=== PATIENT | male | born 1985 | race African-American/Black ===

== ENCOUNTER → 2016-06-26 | Emergency (ER) | payer OTHER ==
[~2016-06-26] VITALS: Ht 172.7 cm; Wt 90.7 kg
[~2016-06-26] MED LIST: Acetaminophen 500mg (ES) tab PO ONE; IBUPROFEN600 MG ORAL; NKM; TRAMADOL HCL50 MG ORAL
[2016-06-26 08:05] VITALS: BP 167/103
--- NOTE | 2016-06-26 12:01 | Diagnostic Imaging Report ---
Indication: TRAUMA, pain Technique: 3 views right foot Comparison: none Findings: No acute fractures. No dislocations. There is slight hammertoe deformity of the second through fifth digits Impression: No acute process
--- NOTE | 2016-06-26 12:04 | Diagnostic Imaging Report ---
Indication: TRAUMA, pain Technique: 3 views of the left shoulder Comparison: none Findings: No acute fractures. No dislocations. Joint spaces are preserved Impression:Negative
--- NOTE | 2016-06-26 22:38 | Emergency Room Report ---
History of Present Illness General Chief Complaint: Upper Extremity Injury Source: Patient Present Illness HPI Patient fell in the bathtub this AM. At time = pain in L shoulder. Then also noted bleeding from toe. Went to work. [place] dizzy. No LOC or head trauma. Pain 8/10 shoulder - sharp and aching. No weakness or numbness. Took 1200 mg motrin. Drove self here. Tetanus UTD. 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 Nursing Documentation: PMH: Agreed, PSxH: Agreed Nursing Documentation-PMH Past Medical History: No History, Except For Hx Asthma: Yes Review of Systems Constitutional: Reports: see HPI Eye: Denies: blurred vision Respiratory: Denies: shortness of breath Cardiovascular: Denies: chest pain Gastrointestinal: Denies: nausea, vomiting Musculoskeletal: Reports: see HPI Skin: Reports: see HPI Neurological: Reports: see HPI Physical Exam Vital Signs Date Time Temp Pulse Resp B/P Pulse Ox O2 Delivery O2 Flow Rate FiO2 06/26/16 08:05 98.6 75 18 167/103 98 Room Air Sp02 EP Interpretation: reviewed, normal General Appearance: well appearing, no apparent distress, GCS 15 Head: normocephalic, atraumatic Eyes: bilateral eye PERRL, bilateral eye normal inspection ENT: hearing grossly normal, normal voice Neck: full range of motion, supple, no bony tend Respiratory: chest non-tender, no respiratory distress, speaking full sentences Cardiovascular #2: 2+ radial (L) Gastrointestinal: normal bowel sounds, non tender, soft Musculoskeletal: normal range of motion - except for L shoulder, pelvis stable , other - pain L shoulder with some decreased ROM, but able to lift hand. No elbow pain. Neurologic: alert, oriented x3, motor strength/tone normal, sensory intact, cerebellar normal, normal gait, speech normal Psychiatric: mood/affect normal Skin: laceration - 1 cm superficial lac on R toe Procedures Laceration/Wound Repair Laceration/Wound Repair : Consent: Verbal Wound Location: other - R toe Wound's Depth, Shape: superficial Wound Explored: clean Betadine Prep?: Yes Wound Repaired With: Dermabond Sterile Dressing Applied?: Yes Splint Applied?: No Patient Tolerated: Well Complications: None Medical Decision Making Diagnostic Impression: Primary Impression: Shoulder contusion Qualified Codes: S40.012A - Contusion of left shoulder, initial encounter Additional Impression: Toe laceration ER Course Patient with L shoulder and R toe injuries post fall this AM. Ddx: fracture, contusion, sprain, laceration. Xrays indicated. Also analgesia ordered ( patient driving). Lac needs repair, dermabond will suffice. Xrays no fx. Lac repaired. Sling applied and position excellent and neurovasc normal checked by me. Patient stable for outpatient observation and treatment. Other X-Ray Diagnostic Results Other X-Ray Diagnostic Results #1: X-Ray Ordered: L shoulder EP Interpretation: Yes Findings: no fractures, no dislocation, no soft tissue swelling Number of Views: 3 Other X-Ray Diagnostic Results #2: X-Ray Ordered: R foot EP Interpretation: Yes Findings: no fractures, no dislocation, no soft tissue swelling Number of Views: 3 Last Vital Signs Date Time Temp Pulse Resp B/P Pulse Ox O2 Delivery O2 Flow Rate FiO2 06/26/16 08:05 98.6 75 18 167/103 98 Room Air Status: improved Disposition: HOME, SELF-CARE Condition: Improved Scripts Ibuprofen* (MOTRIN*) 600 Mg Tablet 600 MG ORAL Q8H Y for For Pain, #20 TAB 0 Refills Prov: Nikko Kern M.D. 06/26/16 Tramadol Hcl* (ULTRAM*) 50 Mg Tablet 50 MG ORAL Q6H Y for For Pain, #16 TAB 0 Refills Prov: Nikko Kern M.D. 06/26/16 Departure Forms: Return to Work Return to Work in (Days): 3 Return to Work Date: Jun 29, 2016 Other Restrictions: Rest L arm Patient Instructions: Laceration Care, Adult, Contusion, RICE for Routine Care of Injuries Additional Instructions: Elevation, ice and rest. Tylenol can also help. Nikko Kern M.D. Jun 26, 2016 22:38
== END | disposition home or self-care (01) ==
LOC: EMR 08:15
DX: S40.012A Contusion of left shoulder, initial encounter (principal); S91.119A Laceration without foreign body of unspecified toe without damage to nail, initial encounter; J45.909 Unspecified asthma, uncomplicated; W18.2XXA Fall in (into) shower or empty bathtub, initial encounter; Y92.002 Bathroom of unspecified non-institutional (private) residence as the place of occurrence of the external cause; Y99.8 Other external cause status

== ENCOUNTER 2016-07-05 09:22 | Emergency (ER) | payer OTHER ==
[~2016-07-05] VITALS: Ht 172.7 cm; Wt 90.7 kg
[~2016-07-05 09:22] MED LIST changes: -Acetaminophen 500mg (ES) tab PO ONE
[2016-07-05 09:40] VITALS: BP 123/76
[2016-07-05 09:55] VITALS: BP 123/76
--- NOTE | 2016-07-05 10:52 | Emergency Room Report ---
History of Present Illness General Chief Complaint: General Complaint Source: Patient Present Illness HPI Patient returns for re-evaluation. He fell June 26 in his bathtub. At that time he had a shoulder contusion diagnosed. He had quite a bit of pain in his shoulder with negative x-ray. He states that since that time has been taking medication however still unable to use his left shoulder while. 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 He has been put off of work up at this time by his employer. Pain is 8/10, aching and some stiffness. No sig radiation. He is unable to raise hand well. Use of sling. Unable to see PMD. No physical therapy scheduled. He also had a toe laceration which he states is healing well. Able to ambulate with minimal discomfort. No fevers, change in bowels, cough, URI. 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 Nursing Documentation: PMH: Agreed, PSxH: Agreed Nursing Documentation-PMH Past Medical History: No History, Except For Hx Asthma: Yes Review of Systems All Other Systems: negative except mentioned in HPI Physical Exam Vital Signs Date Time Temp Pulse Resp B/P Pulse Ox O2 Delivery O2 Flow Rate FiO2 07/05/16 09:27 98.1 72 16 123/76 94 Room Air Sp02 EP Interpretation: reviewed, abnormal - lower than anticipated as interpreted by me General Appearance: well appearing, no apparent distress Head: normocephalic, atraumatic Eyes: bilateral eye PERRL, bilateral eye normal inspection ENT: hearing grossly normal, normal voice Neck: full range of motion, supple Respiratory: no respiratory distress, speaking full sentences Gastrointestinal: normal inspection Musculoskeletal: other - tenderness in shoulder (anteriorly), decreased ROM and PROM. Unable to raise hand above shoulder. No crepetance. Elbow and clavicle not tender. Neurologic: alert, motor strength/tone normal, sensory intact, normal gait Psychiatric: mood/affect normal Skin: wd healing/no infection noted - toe laceration Medical Decision Making Diagnostic Impression: Primary Impression: Rotator cuff injury Qualified Codes: S46.002D - Unspecified injury of muscle(s) and tendon(s) of the rotator cuff of left shoulder, subsequent encounter Additional Impression: Wound check ER Course Patient with persistent L shoulder pain. Exam now c/w rotator cuff injury. Not complete tear but needs re-evaluation with MRI and continued rest and analgesia. Advised of importance to f/u logging specialist. Toe lac healing well. Patient stable for outpatient observation and treatment. 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 An MRI would be helpful. Physical therapy may be of benifit. Nikko Kern M.D. Jul 05, 2016 10:52
== END 2016-07-05 09:55 | disposition home or self-care (01) ==
LOC: EMR 09:40
DX: S46.092D Other injury of muscle(s) and tendon(s) of the rotator cuff of left shoulder, subsequent encounter (principal); S91.11 Laceration without foreign body of toe without damage to nail; W19.XXXD Unspecified fall, subsequent encounter; J45.909 Unspecified asthma, uncomplicated
CPT/HCPCS: 99282

== ENCOUNTER 2019-04-20 08:10 | Emergency (ER) | payer OTHER ==
[~2019-04-20] VITALS: Ht 172.7 cm; Wt 92.5 kg
[2019-04-20 08:20] VITALS: BP 167/107
--- NOTE | 2019-04-20 08:24 | NUR ---
ED Nurse Note: Patient walked in to ER from work due to flu like symptoms for 2 weeks. pt c/o headache 5/10 with blurry vision, coughing with clear and thick mucus but not couhging at this moment. calm and cooperative. skin clean and intact. aao x4 and steady ambulation. no drooping or slurred speach noted. no cardiac or acute distress noted at this time.
--- NOTE | 2019-04-20 08:29 | NUR ---
ED Nurse Note: ERMD at bedside.
[2019-04-20] MEDS ORDERED: AMOXICILLIN500 MG ORAL (08:37)
[2019-04-20] MEDS ORDERED: ALBUTEROL SULF8.5 GM INH (08:37)
[2019-04-20] MEDS ORDERED: PREDNISONE20 MG ORAL (08:37)
[2019-04-20 08:41] VITALS: BP 156/86
--- NOTE | 2019-04-20 08:42 | NUR ---
ED Nurse Note: Pt cleared by health care Provider for discharge. DC instructions/ electronic prescription was given and explained to pt and verbalized understanding of teachings. All medical deviecs such as ID band removed. Pt is AAO x4, ambulatory and left with all personal belongings.
--- NOTE | 2019-04-20 09:36 | Emergency Room Report ---
History of Present Illness General Chief Complaint: Flu Like Symptoms Source: Patient Present Illness HPI 34-year-old male presents ED for evaluation. Complaining of headache, cough, congestion x2 weeks. Feels pressure in his sinuses. Throbbing, 7 out of 10, nonradiating. Cough is dry. Worse at night. Has tried multiple over-the- counter cough and cold medications without improvement in symptoms. Denies fevers or chills. Denies sick contacts or recent travel. No other aggravating relieving factors. Denies any other associated symptoms Allergies: Coded Allergies: No Known Allergies (Unverified , 06/26/16) Patient History Past Medical History: asthma Past Surgical History: none Pertinent Family History: none Social History: Denies: smoking, alcohol use, drug use Immunizations: UTD Reviewed Nursing Documentation: PMH: Agreed; PSxH: Agreed Nursing Documentation-PMH Past Medical History: No History, Except For Hx Asthma: Yes Review of Systems All Other Systems: negative except mentioned in HPI Physical Exam Vital Signs Date Time Temp Pulse Resp B/P (MAP) Pulse Ox O2 Delivery O2 Flow Rate FiO2 04/20/19 08:14 98.2 61 16 167/107 (127) 95 Room Air Sp02 EP Interpretation: reviewed, normal General Appearance: no apparent distress, alert, GCS 15, non-toxic Head: normocephalic, atraumatic Eyes: bilateral eye normal inspection, bilateral eye PERRL ENT: hearing grossly normal, normal pharynx, no angioedema, normal voice Neck: full range of motion, supple/symm/no masses Respiratory: chest non-tender, lungs clear, normal breath sounds, speaking full sentences Cardiovascular #1: regular rate, rhythm, no edema Cardiovascular #2: 2+ carotid (R), 2+ carotid (L), 2+ radial (R), 2+ radial (L) , 2+ dorsalis pedis (R), 2+ dorsalis pedis (L) Gastrointestinal: normal bowel sounds, non tender, soft, non-distended, no guarding, no rebound Rectal: deferred Genitourinary: normal inspection, no CVA tenderness Musculoskeletal: back normal, gait/station normal, normal range of motion, non- tender Neurologic: alert, oriented x3, responsive, motor strength/tone normal, sensory intact, speech normal Psychiatric: judgement/insight normal, memory normal, mood/affect normal, no suicidal/homicidal ideation Reflexes: 3+ bicep (R), 3+ bicep (L), 3+ tricep (R), 3+ tricep (L), 3+ knee (R) , 3+ knee (L) Lymphatic: no adenopathy Medical Decision Making Diagnostic Impression: Primary Impression: Atypical pneumonia ER Course Hospital Course 34 yo M presents to ED c/o sore throat, cough, congestin x 2 weeks Differential diagnoses include: URI, pharyngitis, otitis media, asthma Clinical course Patient placed on stretcher. After initial history, physical exam reveals a female in no acute distress. Bilateral TM unremarkable. No pharyngeal erythema. No tonsillar exudates. No lymphadenopathy. lungs clear. abdomen soft. I discussed findings with patient. Will discharge home with antibiotics given prolonged course. Also provide inhaler and prednisone as patient does have history of asthma. Safe for discharge for close outpatient follow-up. States he has a PMD Diagnosis - atypical pneumonia Stable and discharged home with Rx amoxicillin, prednisone, albuterol. Instructed to followup with PMD. Return to ED if symptoms recur or worsen Last Vital Signs Date Time Temp Pulse Resp B/P (MAP) Pulse Ox O2 Delivery O2 Flow Rate FiO2 04/20/19 08:41 98.0 79 16 156/86 100 Room Air Status: improved Disposition: HOME, SELF-CARE Condition: Stable Scripts Albuterol Sulfate* (ALBUTEROL SULFATE MDI*) 8.5 Gm Hfa.aer.ad 2 PUFF INH Q6H, #1 EA 0 Refills Prov: Joni Montiel MD 04/20/19 Prednisone* (PREDNISONE*) 20 Mg Tablet 40 MG ORAL DAILY, #10 TAB Prov: Joni Montiel MD 04/20/19 Amoxicillin* (AMOXIL*) 500 Mg Capsule 500 MG ORAL THREE TIMES A DAY, #21 CAP Prov: Joni Montiel MD 04/20/19 Referrals: NOT CHOSEN IPA/,REFERRING (PCP) Departure Forms: Return to Work Return to Work Date: Apr 21, 2019 Work Restrictions: None Patient Instructions: Community-Acquired Pneumonia, Adult, [id number] Joni Montiel MD Apr 20, 2019 09:36
== END 2019-04-20 09:00 | disposition home or self-care (01) ==
LOC: EMR 08:50
DX: J18.9 Pneumonia, unspecified organism (principal)
CPT/HCPCS: 99282